=== PATIENT | male | born 1945 | race Caucasian/White ===

== ENCOUNTER 2018-12-31 20:52 | Emergency (ER) | payer MEDICARE ==
[~2018-12-31] VITALS: Ht 172.7 cm; Wt 77.1 kg
[2018-12-31] MEDS ORDERED: CEFADROXIL500 M1 PO (21:53)
== END 2018-12-31 22:00 | disposition home or self-care (01) ==
LOC: ED 20:52
DX: S50.11XA Contusion of right forearm, initial encounter (principal); W22.8XXA Striking against or struck by other objects, initial encounter; Y93.89 Activity, other specified; Y92.89 Other specified places as the place of occurrence of the external cause; Y99.8 Other external cause status